=== PATIENT | male | born 1975 | race Two or more races ===

== ENCOUNTER 2024-10-14 09:33 | Emergency (ER) | payer OTHER ==
[~2024-10-14] VITALS: Ht 190.5 cm; Wt 113.4 kg
[2024-10-14 10:36] VITALS: BP 145/98; O2SAT 98
[2024-10-14] MEDS ORDERED: OxyCODONE HCL/APAP UD (PERCOCET) PO ONE (10:45)
[2024-10-14] MEDS ORDERED: TRIAMCINOLONE ACETONIDE 40 MG/ML VIAL IM ONE (10:45)
[2024-10-14] MEDS ORDERED: KETOROLAC TROMETHAMINE 60 MG VIAL IM ONE ×2 (10:45→10:48)
[2024-10-14] MEDS ORDERED: TRIAMCINOLONE ACETONIDE 40 MG/ML VIAL ONE (10:48)
[2024-10-14] MEDS ORDERED: DICLOFENAC SODI75 MG PO (11:09)
[2024-10-14] MEDS ORDERED: NORFLEX100MG PO (11:09)
== END 2024-10-14 11:27 | disposition home or self-care (01) ==
LOC: ER 09:36
DX: M54.89 Other dorsalgia (principal); M62.830 Muscle spasm of back; Z88.0 Allergy status to penicillin